=== PATIENT | male | born 1960 | race Caucasian/White ===

== ENCOUNTER 2023-04-30 07:44 | Observation (INO) | payer BC ==
--- NOTE | 2023-04-30 08:25 | ED ---
General Adult HPI - General Chief complaint: GI Bleed Stated complaint: GI Bleed Time Seen by Provider: 04/30/23 08:10 Source: patient, RN notes reviewed, old records reviewed Mode of arrival: ambulatory Limitations: no limitations - History of Present Illness Initial comments: This is a 62-year-old male who comes to the emergency department complaining of rectal bleeding. Patient states his been on and off for years. Patient states however today he went to the bathroom 6 times in the bright red blood all 6 times. Patient states it was quite heavy to the point where it was soaking through his clothes. Patient states she has not had a colonoscopy for at least 10 years. Patient denies any rectal pain patient denies any abdominal pain palpitations any nausea vomiting or diarrhea. Patient states it's not uncommon for him to go to the bathroom 6 or 7 times before 7:00 in the morning. Patient denies any lightheadedness or dizziness. Patient is not on any blood thinners. - Related Data Previous Rx's Medication Instructions Recorded Metoprolol Tartrate [Lopressor] 25 mg PO BID #60 tab 10/03/14 lisinopriL [Zestril] 10 mg PO DAILY #30 tab 10/03/14 Allergies Allergy/AdvReac Type Severity Reaction Status Date / Time codeine AdvReac Abdominal Verified 04/30/23 07:52 Pain Sulfa (Sulfonamide AdvReac Unknown Verified 04/30/23 07:52 Antibiotics) Childhood Review of Systems ROS Statement: Those systems with pertinent positive or pertinent negative responses have been documented in the HPI. ROS Other: All systems not noted in ROS Statement are negative. Past Medical History Past Medical History: Hypertension History of Any Multi-Drug Resistant Organisms: None Reported Past Surgical History: No Surgical Hx Reported Additional Past Anesthesia/Blood Transfusion Reaction / Comment(s): pt. denies having any surgeries Past Psychological History: No Psychological Hx Reported Smoking Status: Current every day smoker Past Alcohol Use History: Occasional Past Drug Use History: None Reported General Exam - General Exam Comments Initial Comments: GENERAL: Patient is well-developed and well-nourished. Patient is nontoxic and well- hydrated and is in mild distress. ENT: Neck is soft and supple. No significant lymphadenopathy is noted. Oropharynx is clear. Moist mucous membranes. Neck has full range of motion without eliciting any pain. EYES: The sclera were anicteric and conjunctiva were pink and moist. Extraocular movements were intact and pupils were equal round and reactive to light. Eyelids were unremarkable. PULMONARY: Unlabored respirations. Good breath sounds bilaterally. No audible rales rhonchi or wheezing was noted. CARDIOVASCULAR: There is a regular rate and rhythm without any murmurs gallops or rubs. ABDOMEN: Soft and nontender with normal bowel sounds. RECTAL: On rectal exam there is a friable mass at the 9 o'clock position measures about 2 cm in length and 1 cm in width it is tender to palpation SKIN: Skin is clear with no lesions or rashes and otherwise unremarkable. NEUROLOGIC: Patient is alert and oriented x3. Cranial nerves II through XII are grossly intact. Motor and sensory are also intact. Normal speech, volume and content. Symmetrical smile. MUSCULOSKELETAL: Normal extremities with adequate strength and full range of motion. LYMPHATICS: No significant lymphadenopathy is noted PSYCHIATRIC: Normal psychiatric evaluation. Limitations: no limitations Course Vital Signs 04/30/23 04/30/23 04/30/23 07:51 08:42 09:00 Temperature 98.1 F Pulse Rate 71 60 68 Respiratory 20 16 16 Rate Blood Pressure 125/75 125/92 130/90 O2 Sat by Pulse 99 98 98 Oximetry Medical Decision Making - Medical Decision Making Was pt. sent in by a medical professional or institution ([facility], BENEFIT AUTHORIZER, urgent care, hospital, or residential...) When possible be specific @ -No Did you speak to anyone other than the patient for history (EMS, parent, family, police, friend...)? What history was obtained from this source @ -No Did you review nursing and triage notes (agree or disagree)? Why? @ -I reviewed and agree with nursing and triage notes Were old charts reviewed (outside hosp., previous admission, EMS record, old EKG, old radiological studies, urgent care reports/EKG's, residential records)? Report findings @ -No old charts were reviewed Differential Diagnosis (chest pain, altered mental status, abdominal pain women, abdominal pain men, vaginal bleeding, weakness, fever, dyspnea, syncope, headache, dizziness, GI bleed, back pain, seizure, CVA, palpatations, mental health, musculoskeletal)? @ -Differential GI Bleed: Esophageal varices, aortoenteric fistula, [place]-Dav[place], gastritis, peptic ulcer disease, diverticulosis, inflammatory bowel disease, hemorrhoids, fissure, colitis, malignancy, Meckels diverticulum, this is not meant to be an all- inclusive list. EKG interpreted by me (3pts min.). @ -As above X-rays interpreted by me (1pt min.). @ -None done CT interpreted by me (1pt min.). @ -None done U/S interpreted by me (1pt. min.). @ -None done What testing was considered but not performed or refused? (CT, X-rays, U/S, labs)? Why? @ -None What meds were considered but not given or refused? Why? @ -None Did you discuss the management of the patient with other professionals (professionals i.e. , PA, BENEFIT AUTHORIZER, lab, RT, psych nurse, social work specialist, roll forming machine operator, teacher, hospital chief executive officer, shelter case manager)? Give summary @ -I spoke with Dr. Pop she will do a colonoscopy tomorrow. I spoke with [facility] see we'll admit the patient I'll admit the patient write admitting orders Was smoking cessation discussed for >3mins.? @ -No Was critical care preformed (if so, how long)? @ -No Were there social determinants of health that impacted care today? How? (Homelessness, low income, unemployed, alcoholism, drug addiction, transportation, low edu. Level, literacy, decrease access to med. care, care home, rehab)? @ -No Was there de-escalation of care discussed even if they declined (Discuss DNR or withdrawal of care, Hospice)? DNR status @ -No What co-morbidities impacted this encounter? (DM, HTN, Smoking, COPD, CAD, Cancer, CVA, ARF, Chemo, Hep., AIDS, mental health diagnosis, sleep apnea, morbid obesity)? @ -None Was patient admitted / discharged? Hospital course, mention meds given and route, prescriptions, significant lab abnormalities, going to OR and other pertinent info. @ -Patient had a friable mass next to the rectum more consistent with a mass in the hemorrhoids so I spoke with Dr. keys she agreed to do a colonoscopy tomorrow. I spoke with the [facility] hospice they agreed to admit the patient admitted the patient wrote admitting orders Undiagnosed new problem with uncertain prognosis? @ -No Drug Therapy requiring intensive monitoring for toxicity (Heparin, Nitro, Insulin, Cardizem)? @ -No Were any procedures done? @ -No Diagnosis/symptom? @ -Rectal mass Acute, or Chronic, or Acute on Chronic? @ -Acute Uncomplicated (without systemic symptoms) or Complicated (systemic symptoms)? @ -Complicated Side effects of treatment? @ -No Exacerbation, Progression, or Severe Exacerbation? @ -No Poses a threat to life or bodily function? How? (Chest pain, [place], [place], pneumonia, PE, COPD, DKA, ARF, appy, cholecystitis, CVA, Diverticulitis, Homicidal, Suicidal, threat to staff... and all critical care pts) @ -No Diagnosis/symptom? @ -GI bleed Acute, or Chronic, or Acute on Chronic? @ -Acute on chronic Uncomplicated (without systemic symptoms) or Complicated (systemic symptoms)? @ -Complicated Side effects of treatment? @ -none Exacerbation, Progression, or Severe Exacerbation] @ -no Poses a threat to life or bodily function? @ -Yes this could lead to anemia hypoperfusion - Lab Data Result diagrams: 04/30/23 08:14 04/30/23 08:14 Lab Results 04/30/23 04/30/23 04/30/23 Range/Units 08:14 08:14 08:14 WBC 6.6 (3.8-10.6) k/uL RBC 5.23 (4.30-5.90) m/uL Hgb 16.8 (13.0-17.5) gm/dL Hct 51.6 (39.0-53.0) % MCV 98.8 (80.0-100.0) fL MCH 32.2 (25.0-35.0) pg MCHC 32.5 (31.0-37.0) g/dL RDW 13.4 (11.5-15.5) % Plt Count 175 (150-450) k/uL MPV 8.4 Neutrophils % 68 % Lymphocytes % 22 % Monocytes % 6 % Eosinophils % 3 % Basophils % 0 % Neutrophils # 4.4 (1.3-7.7) k/uL Lymphocytes # 1.5 (1.0-4.8) k/uL Monocytes # 0.4 (0-1.0) k/uL Eosinophils # 0.2 (0-0.7) k/uL Basophils # 0.0 (0-0.2) k/uL PT 10.6 (9.0-12.0) sec INR 1.0 (<1.2) APTT 27.8 (22.0-30.0) sec Sodium 139 (137-145) mmol/L Potassium 4.6 (3.5-5.1) mmol/L Chloride 103 (98-107) mmol/L Carbon Dioxide 30 (22-30) mmol/L Anion Gap 6 mmol/L BUN 16 (9-20) mg/dL Creatinine 0.99 (0.66-1.25) mg/dL Est GFR (CKD-EPI)AfAm >90 (>60 ml/min/1.73 sqM) Est GFR (CKD-EPI)NonAf 82 (>60 ml/min/1.73 sqM) Glucose 114 H (74-99) mg/dL Calcium 9.2 (8.4-10.2) mg/dL Total Bilirubin 1.2 (0.2-1.3) mg/dL AST 25 (17-59) U/L ALT 21 (4-49) U/L Alkaline Phosphatase 82 (38-126) U/L Total Protein 7.1 (6.3-8.2) g/dL Albumin 4.2 (3.5-5.0) g/dL Disposition Clinical Impression: GI bleed, Rectal mass Disposition: ADMITTED IP TO THIS [facility] Referrals: Darnell Kennedy [Primary Care Provider] - 1-2 days Time of Disposition: 09:35
[2023-04-30 08:50] LABS: Basophils % (A) 0 %; Eosinophils # (A) 0.2 k/uL (0-0.7); Eosinophils % (A) 3 %; HCT 51.6 % (39.0-53.0); HGB 16.8 gm/dL (13.0-17.5); Lymphocytes # (A) 1.5 k/uL (1.0-4.8); Lymphocytes % (A) 22 %; MCH 32.2 pg (25.0-35.0); MCHC 32.5 g/dL (31.0-37.0); MCV 98.8 fL (80.0-100.0); Mean Platelet Volume 8.4; Monocytes # (A) 0.4 k/uL (0-1.0); Monocytes % (A) 6 %; Neutrophils # (A) 4.4 k/uL (1.3-7.7); Neutrophils % (A) 68 %; Platelet Count 175 k/uL (150-450); RBC 5.23 m/uL (4.30-5.90); RDW 13.4 % (11.5-15.5); WBC 6.6 k/uL (3.8-10.6)
[2023-04-30 08:58] LABS: Partial Thromboplastin Time 27.8 sec (22.0-30.0); Prothrombin Time 10.6 sec (9.0-12.0)
[2023-04-30 09:04] LABS: ALT 21 U/L (4-49); AST 25 U/L (17-59); African American GFR (CKD) >90 (>60 ml/min/1.73 sqM); Albumin 4.2 g/dL (3.5-5.0); Alkaline Phosphatase 82 U/L (38-126); Anion Gap 6 mmol/L; Blood Urea Nitrogen 16 mg/dL (9-20); Calcium 9.2 mg/dL (8.4-10.2); Carbon Dioxide 30 mmol/L (22-30); Chloride 103 mmol/L (98-107); Glucose 114 mg/dL (74-99); Non-African American GFR(CKD) 82 (>60 ml/min/1.73 sqM); Potassium 4.6 mmol/L (3.5-5.1); Sodium 139 mmol/L (137-145); Total Bilirubin 1.2 mg/dL (0.2-1.3); Total Protein 7.1 g/dL (6.3-8.2)
[2023-04-30] MEDS ORDERED: SODIUM CHLORIDE 0.9% 1,000 ML IV ONE (09:36)
[2023-04-30] MEDS ORDERED: PANTOPRAZOLE 40 MG/10 ML VIAL IVP SCH (10:15)
[2023-04-30] MEDS ORDERED: cloNIDine HCL 0.1 MG TAB PO PRN (12:38)
[2023-04-30] MEDS ORDERED: LORazepam 0.5 MG TAB PO PRN (12:38)
[2023-04-30] MEDS ORDERED: THIAMINE 100 MG/ML 2 ML VIAL IM STA (12:38)
[2023-04-30] MEDS ORDERED: LORazepam 1 MG TAB PO PRN ×3 (12:38)
[2023-04-30] MEDS: NICOTINE 14MG/24HR PATCH TRANSDERM SCH (13:09)
--- NOTE | 2023-04-30 13:58 | HP ---
HISTORY AND PHYSICAL CHIEF COMPLAINT: GI bleed. HISTORY OF PRESENT ILLNESS: This is a 62-year-old gentleman with a past medical history of hypertension and history of EtOH, who has presented with rectal bleeding. The patient reports that the patient had bleeding on and off for the past several years, and the blood was bright red in color. The patient had previous colonoscopy about 10 years ago. There is no history of any fever, rigor, or chills at this time. PAST MEDICAL HISTORY: Hypertension and EtOH. HOME MEDICATIONS: Zestril. Doses and rest of the medications are reviewed. ALLERGIES: Include codeine. FAMILY HISTORY: No history of heart disease or strokes in the family. SOCIAL HISTORY: EtOH and smoking. REVIEW OF SYSTEMS: Fourteen-point review is negative except as mentioned earlier. PHYSICAL EXAMINATION: VITAL SIGNS: Pulse 60, blood pressure 125/92, respirations 16. HEENT: Conjunctivae are normal. NECK: No jugular venous distention. CARDIOVASCULAR: S1 and S2 muffled. RESPIRATORY: Breath sounds diminished at the bases. ABDOMEN: Soft and nontender. No masses palpable. LEGS: No edema. NERVOUS SYSTEM: Nonfocal. SKIN: No ulcers or rashes. JOINTS: No active deforming arthropathy. LABORATORY DATA: Hemoglobin is 16.8. ASSESSMENT: 1. Acute lower gastrointestinal bleeding. 2. History of EtOH. 3. Hypertension. 4. Multiple complex medical issues. 5. History of nicotine dependence. RECOMMENDATIONS AND DISCUSSION: In this 62-year-old gentleman presented with multiple complex medical issues, we will monitor the patient closely. I would recommend Gastroenterology consultation, possible endoscopies, H and H q.6, and monitor hemoglobin closely. Transfuse accordingly. Hold off anticoagulants at this time. Otherwise, monitor blood pressure closely. Watch for EtOH withdrawal symptoms and CIWA protocol. Prognosis is guarded. Further recommendations to follow. See orders for the details. MMODL / IJN: [id number] /
--- NOTE | 2023-04-30 15:35 | P.CONS ---
History of Present Illness - Reason for Consult Consult date: 04/30/23 GI bleed, rectal mass Requesting physician: Franck Bojorquez - Chief Complaint Rectal bleeding - History of Present Illness This is a pleasant 62-year-old male with a history of hypertension and hyperlipidemia as well as ongoing rectal bleeding for several years who presen tere to the emergency department for increased rectal bleeding. Patient states that he has had off-and-on rectal bleeding for several years which he attributes to hemorrhoids. He states that yesterday and today he started having large amounts of rectal bleeding, was saturating through his clothes. He came to the emergency department for further evaluation. Patient states he has no abdominal pain or cramping associated with the bleeding. He states that he does however have ongoing upper abdominal discomfort every morning. States he has 5-7 loose bowel movements every morning. He's had no prior upper endoscopic evaluation, and last colonoscopy was at least 10 years ago. He denies any anticoagulation, no regular NSAID use. Review of Systems REVIEW OF SYSTEMS: CARDIOPULMONARY: No chest pain or shortness of breath. Gastrointestinal: Upper abdominal/epigastric discomfort, daily mostly in the morning. No nausea or vomiting. No hematemesis, coffee-ground emesis. Rectal bleeding, Cole red. Loose stools 5-7 times daily, chronic. GENITOURINARY: No dysuria or hematuria. MUSCULOSKELETAL: Reports normal range of motion. SKIN: No rashes. No jaundice. ENDOCRINE: No chills, fevers. No excessive weight gain or loss. No polydipsia or polyuria. PSYCHIATRIC: Unremarkable. NEUROLOGY: No change in mental status. Denies dizziness, headache. ENT: Vision unremarkable. CONSTITUTIONAL: No recent weight loss. No fever, chills, night sweats. Past Medical History Past Medical History: Hypertension History of Any Multi-Drug Resistant Organisms: None Reported Past Surgical History: No Surgical Hx Reported Additional Past Anesthesia/Blood Transfusion Reaction / Comm: pt. denies having any surgeries Past Psychological History: No Psychological Hx Reported Smoking Status: Current every day smoker Past Alcohol Use History: Occasional Past Drug Use History: None Reported Medications and Allergies Home Medications Medication Instructions Recorded Confirmed Type Metoprolol Tartrate [Lopressor] 50 mg PO HS 04/30/23 04/30/23 History Pantoprazole [Protonix] 40 mg PO HS 04/30/23 04/30/23 History amLODIPine [Norvasc] 10 mg PO HS 04/30/23 04/30/23 History lisinopriL [Zestril] 30 mg PO HS 04/30/23 04/30/23 History Allergies Allergy/AdvReac Type Severity Reaction Status Date / Time codeine AdvReac Abdominal Verified 04/30/23 10:02 Pain Sulfa (Sulfonamide AdvReac Nausea & Verified 04/30/23 10:02 Antibiotics) Vomiting Physical Exam Vitals: Vital Signs Temp Pulse Resp BP Pulse Ox 04/30/23 09:00 68 16 130/90 98 04/30/23 08:42 60 16 125/92 98 04/30/23 07:51 98.1 F 71 20 125/75 99 Intake and Output 04/29/23 04/30/23 04/30/23 22:59 06:59 14:59 Other: Weight 89.811 kg General appearance: The patient is alert, oriented, appears in no acute distress. HET: Head is normocephalic and atraumatic. Conjunctiva pink. Sclera anicteric. Neck: Supple without lymphadenopathy. Trachea midline. Heart: Regular. Lungs: Equal expansion, normal respiratory effort. Abdomen: Soft, nontender, nondistended with bowel sounds. No guarding or rigidity. Rectum: Patient with beefy red thrombosed/prolapsed hemorrhoid. No bleeding. Skin: No rashes. No jaundice. Extremities: Normal skin color and turgor. No pedal edema. Neurological: No focal deficits. Alert and oriented x3. Results CBC & Chem 7: 04/30/23 08:14 04/30/23 08:14 Labs: Abnormal Lab Results - Last 24 Hours (Table) 04/30/23 Range/Units 08:14 Glucose 114 H (74-99) mg/dL Assessment and Plan (1) GI bleed Narrative/Plan: 62-year-old male presenting with rectal bleeding that has been going on for years small amounts happens with that bowel movement. Patient attributed it to hemorrhoids. However in the last 1-2 days he started having significant amount of rectal bleeding where was saturating has close. States that he has been able to feel that there is something on the external anus he has not had any evaluation until now. States last colonoscopy was greater than 10 years ago. He denies any anticoagulation or NSAID use. States bleeding is bright red, it is painless. Hemoglobin was stable on admission at 16.8 platelet count 175,000. Patient rectal exam revealed what looks like a thrombosed/prolapsed h emorrhoid. Recommend further evaluation with colonoscopy. Current Visit: Yes Status: Acute Code(s): K92.2 - GASTROINTESTINAL HEMORRHAGE, UNSPECIFIED SNOMED Code(s): 54357868 (2) Epigastric pain Narrative/Plan: Patient with long-standing history of chronic epigastric pain, mostly in the morning. Does not take any medication regularly. Will proceed with upper endoscopy. Protonix 40 mg twice a day added. Current Visit: Yes Status: Acute Code(s): R10.13 - EPIGASTRIC PAIN SNOMED Code(s): 20038598 Plan: 1. Continue symptomatic and supportive care 2. Daily CBC and transfuse for hemoglobin less than 7 3. Continue Protonix 4. Clear liquid diet, nothing by mouth after midnight 5. Plan for EGD/colonoscopy tomorrow. Procedure discussed with patient including risks and benefits. Patient agreeable to proceed. 6. Further recommendations forthcoming based on clinical course Thank you for this consultation, we will continue to follow. Dr. Ganga Pop I agree with the dictator's note, documented as a scribe by Alice Owens.
[2023-04-30 16:30] LABS: Basophils % (A) 0 %; Eosinophils # (A) 0.2 k/uL (0-0.7); Eosinophils % (A) 3 %; HCT 46.7 % (39.0-53.0); HGB 15.5 gm/dL (13.0-17.5); Lymphocytes # (A) 1.9 k/uL (1.0-4.8); Lymphocytes % (A) 33 %; MCH 32.7 pg (25.0-35.0); MCHC 33.1 g/dL (31.0-37.0); MCV 98.7 fL (80.0-100.0); Monocytes # (A) 0.3 k/uL (0-1.0); Monocytes % (A) 6 %; Neutrophils # (A) 3.2 k/uL (1.3-7.7); Neutrophils % (A) 56 %; Platelet Count 138 k/uL (150-450); RBC 4.74 m/uL (4.30-5.90); RDW 13.4 % (11.5-15.5); WBC 5.7 k/uL (3.8-10.6)
[2023-04-30] MEDS ORDERED: PEG 3350 (236 GM/BTL) + LYTES 4,000 ML BOTTLE PO ONE (18:00)
[2023-04-30] MEDS ORDERED: amLODIPine 10 MG TAB PO SCH (21:00)
[2023-04-30] MEDS ORDERED: lisinopriL 10 MG TAB PO SCH (21:00)
[2023-04-30] MEDS ORDERED: METOPROLOL TARTRATE 50 MG TAB PO SCH (21:00)
[2023-04-30] MEDS: PANTOPRAZOLE 40 MG/10 ML VIAL IVP SCH (21:22)
[2023-05-01 07:35] VITALS: RESP 18; TEMP 97.7
[2023-05-01] MEDS: NICOTINE 14MG/24HR PATCH TRANSDERM SCH (08:06)
[2023-05-01] MEDS: PANTOPRAZOLE 40 MG/10 ML VIAL IVP SCH (08:06)
[2023-05-01] MEDS ORDERED: THIAMINE 100 MG TAB PO SCH (09:00)
[2023-05-01] MEDS ORDERED: LIDOCAINE 2% INJ 20 MG/ML (2 ML VIAL) ONE (09:15)
[2023-05-01] MEDS ORDERED: PROPOFOL 10 MG/ML 20 ML VIAL IV ONE (09:15)
[2023-05-01] MEDS ORDERED: LACTATED RINGERS 1,000 ML IV ONE ×2 (09:16)
--- NOTE | 2023-05-01 09:33 | P.PCN ---
Date of Procedure: 05/01/23 Procedure(s) Performed: Brief history: Patient is a pleasant 62-year-old white male admitted to the hospital with epigastric pain and rectal bleeding for the last 3 days' duration. He is scheduled for an upper endoscopy as well as colonoscopy to evaluate further Procedure performed: Esophagogastroduodenoscopy with biopsy Colonoscopy Preoperative diagnosis: Epigastric pain and heartburn Rectal bleeding Anesthesia: MAC Procedure: After informed consent was obtained from the patient was brought into the endoscopy unit and IV sedation was administered by anesthesia under continuous monitoring. Initially upper endoscopy was done. The Olympus GF 160 video endoscope was inserted inserted into the mouth and esophagus intubated without any difficulty and was gradually advanced into the stomach and duodenum and carefully examined. The bulb and second part of the duodenum appeared normal. The scope was then withdrawn into the stomach adequately insufflated with air and upon careful examination the antrum had mild gastritis and biopsies were done from this area. Mucosa of the body, cardia and fundus appeared normal. The scope was then withdrawn into the esophagus. Mall hiatal hernia noted. The GE junction was located at 40 cm to the incisors. There was a short segment of Salmeron's esophagus esophagus extended 5-6 mm proximal to the GE junction which was biopsied. Rest of the esophagus appeared normal. Patient tolerated the procedure well. At this time the patient continued to remain sedation. Initial digital rectal examination revealed a small prolapsed internal hemorrhoids. No bleeding identified. Olympus CF 160 video colonoscope was then inserted into the rectum and gradually advanced to the cecum without any difficulty. Careful examination was performed as the scope was gradually being withdrawn. The prep was excellent. The cecum, ascending colon, transverse colon, descending colon, sigmoid colon and rectum appeared normal. Retroflexion was performed in the rectum and small internal hemorrhoidswere noted. Patient tolerated the procedure well. Impression: 1. Upper endoscopy revealed small hiatal hernia, short segment Salmeron's esophagus and mild gastritis 2. Colonoscopy revealed prolapsed small internal hemorrhoids, but no evidence of colorectal neoplasia Recommendations: Findings of this examination were discussed with the patient. . He was advised to follow with the biopsy results. Recommend a high-fiber diet and avoid straining and constipation. At about suppository once at bedtime for 2 weeks. He can be discharged home today. Follow up in office in 2 weeks.
[2023-05-01 11:03] LABS: Basophils # (A) 0.05 X 10*3/uL (0.00-0.10); Basophils % (A) 0.8 %; Eosinophils # (A) 0.16 X 10*3/uL (0.04-0.35); Eosinophils % (A) 2.6 %; HCT 49.1 % (39.6-50.0); HGB 16.3 d/dL (13.0-17.0); Lymphocytes # (A) 1.75 X 10*3/uL (0.90-5.00); Lymphocytes % (A) 28.5 %; MCH 31.7 pg (27.0-32.0); MCHC 33.2 d/dL (32.0-37.0); MCV 95.3 FL (80.0-97.0); Mean Platelet Volume 11.3 FL (9.5-12.2); Monocytes # (A) 0.51 X 10*3/uL (0.20-1.00); Monocytes % (A) 8.3 %; NRBC Per 100 WBC 0 X 10*3/uL (0.00-0.01); Neutrophils # (A) 3.65 X 10*3/uL (1.80-7.70); Neutrophils % (A) 59.5 %; Platelet Count 176 X 10*3/uL (140-440); RBC 5.15 X 10*6/uL (4.40-5.60); RDW 13.9 % (11.5-14.5); WBC 6.14 X 10*3/uL (4.50-10.00)
[2023-05-01 11:17] LABS: ALT 24 U/L (10-49); AST 23 U/L (14-35); Albumin 3.9 d/dL (3.8-4.9); Albumin/Globulin Ratio 1.86 Ratio (1.60-3.17); Alkaline Phosphatase 85 U/L (41-126); Blood Urea Nitrogen 8.1 mg/dL (9.0-27.0); Calcium 9.1 mg/dL (8.7-10.3); Carbon Dioxide 27.7 mmol/L (21.6-31.8); Chloride 103 mmol/L (96-109); Globulin 2.1 d/dL (1.6-3.3); Glucose 97 mg/dL (70-110); Potassium 4.5 mmol/L (3.5-5.5); Sodium 138 mmol/L (135-145); Total Bilirubin 1.1 mg/dL (0.3-1.2)
[2023-05-01 11:48] VITALS: BP 132/89; PULSE 62
--- NOTE | 2023-05-02 15:54 | P.DS ---
Providers Date of admission: 04/30/23 09:38 Expected date of discharge: 05/01/23 Attending physician: Pankaj Swanson Consults: 04/30/23 09:36 Consult Physician Urgent Consulting Provider: Esperanza Pop Consult Reason/Comments: GI bleed, rectal mass Do you want consulting provider notified?: Yes Primary care physician: Darnell Kennedy Hospital Course: Final diagnosis Acute lower gastrointestinal bleeding, secondary to hemorrhoids History of EtOH Hypertension prolapsed small hemorrhoid on colonoscopy Small hiatal hernia and short segment Salmeron's esophagus with mild gastritis on EGD GI prophylaxis DVT prophylaxis Full code History of nicotine dependenceDischarge disposition Patient is being discharged in a stable condition with guarded prognosis to home. Patient will follow-up with Dr. Kennedy in the outpatient setting upon discharge. Patient is to continue with Protonix along with Anusol and close outpatient follow-up with GI as scheduled. Total time taken is greater than 35 minutes. Hospital course This is a 62-year-old male who was recently admitted with with rectal bleeding. Patient closely monitored and evaluated by GI and underwent EGD with colonoscop y. Patient did have multiple biopsies obtained and will follow-up with GI in the outpatient setting continue on Protonix daily along with Anusol. Upper endoscopy revealed a small hiatal hernia with short segment Salmeron's esophagus with mild gastritis and colonoscopy revealed prolapsed small internal hemorrhoid with no evidence of neoplasia. Patient will continue on Anusol and follow-up with Dr. Pop in the outpatient setting. Please refer to other consultation notes for further HPI. Currently no reports of chest pain, shortness of breath, or palpitations. Patient is afebrile. No reports of nausea or vomiting and patient is tolerating diet. Patient will be discharged home today. patient has been encouraged to complete alcohol cessation. Physical exam: Gen: This is a 62-year-old male who is awake, alert and oriented 3, well- developed, well-nourished HEENT: Head is atraumatic, normocephalic. Pupils equal, round. Sclerae is anicteric. NECK: Supple. No JVD. No lymphadenopathy. No thyromegaly. LUNGS: Clear to auscultation. No wheezes or rhonchi. No intercostal retractions. HEART: Regular rate and rhythm. No murmur. ABDOMEN: Soft. Bowel sounds are present. No masses. No tenderness. EXTREMITIES: No pedal edema. No calf tenderness. NEUROLOGICAL: Patient is awake, alert and oriented x3. Cranial nerves 2 through 12 are grossly intact. Please refer to medication reconciliation sheet for a list of medications. The impression and plan of care has been dictated by Marilin Herrera, Nurse Practitioner as directed. Dr. Sky MD I have performed a history and examination and MDM of this patient, discussed the same with the dictator, and agree with the dictator's assessment and plan as written ,documented as a scribe. Based on total visit time, I have performed more than 50% of the visit. Patient Condition at Discharge: Fair Plan - Discharge Summary Discharge Rx Participant: No New Discharge Prescriptions: New Hydrocortisone Suppository [Anusol-Hc] 25 mg RECTAL HS #14 suppositor Thiamine [Vitamin B-1] 100 mg PO DAILY #30 tab Nicotine 14Mg/24Hr Patch [Habitrol] 1 patch TRANSDERM DAILY patch Continue amLODIPine [Norvasc] 10 mg PO HS Metoprolol Tartrate [Lopressor] 50 mg PO HS lisinopriL [Zestril] 30 mg PO HS Changed Pantoprazole [Protonix] 40 mg PO DAILY #30 tab Discharge Medication List Metoprolol Tartrate [Lopressor] 50 mg PO HS 04/30/23 [History] amLODIPine [Norvasc] 10 mg PO HS 04/30/23 [History] lisinopriL [Zestril] 30 mg PO HS 04/30/23 [History] Hydrocortisone Suppository [Anusol-Hc] 25 mg RECTAL HS #14 suppositor 05/01/23 [Rx] Nicotine 14Mg/24Hr Patch [Habitrol] 1 patch TRANSDERM DAILY patch 05/01/23 [Rx] Pantoprazole [Protonix] 40 mg PO DAILY #30 tab 05/01/23 [Rx] Thiamine [Vitamin B-1] 100 mg PO DAILY #30 tab 05/01/23 [Rx] Follow up Appointment(s)/Referral(s): Esperanza Pop MD [STAFF PHYSICIAN] - 05/14/23 3:00 pm Darnell Kennedy [Primary Care Provider] - 05/04/23 10:45 am (appointment with Tisha AGUILERA) Patient Instructions/Handouts: Thiamine (By mouth), Hydrocortisone Enema (Into the rectum), Pantoprazole (By mouth), Gastrointestinal Bleeding (DC) Activity/Diet/Wound Care/Special Instructions: Activity Limited until follow-up Follow-up primary care provider on discharge Follow-up GI outpatient Continue taking medications as prescribed Continue tobacco cessation Avoid alcohol use and exposure Discharge Disposition: HOME SELF-CARE
== END 2023-05-01 11:50 | disposition home or self-care (01) ==
LOC: EC 07:44 → INTOOBSV 09:38 → 5NMEDONC 09:38
PROVIDERS: ADMIT Hospitalist; ATTEND Hospitalist
DX: K29.51 Unspecified chronic gastritis with bleeding (principal); K64.8 Other hemorrhoids; K22.70 Barrett's esophagus without dysplasia; K44.9 Diaphragmatic hernia without obstruction or gangrene; K21.9 Gastro-esophageal reflux disease without esophagitis; F17.210 Nicotine dependence, cigarettes, uncomplicated; I10 Essential (primary) hypertension; E78.5 Hyperlipidemia, unspecified; M19.90 Unspecified osteoarthritis, unspecified site; Z79.899 Other long term (current) drug therapy; Z88.5 Allergy status to narcotic agent; Z88.2 Allergy status to sulfonamides; Z97.2 Presence of dental prosthetic device (complete) (partial)
CPT/HCPCS: 96376; 96372; 96374; 99285; 36415; 88305; 80053 ×2; 83735; 84484; 85025 ×2; 85610; 85730; 45378; 43239; G0378; S4990 ×2; J3411; C9113 ×2